=== PATIENT | male | born 1940 | race Caucasian/White ===

== ENCOUNTER 2017-06-11 12:12 | Inpatient (IN) | payer OTHER, MEDICARE ==
[~2017-06-11] VITALS: Ht 175.3 cm; Wt 65.8 kg
[~2017-06-11 12:12] MED LIST: (None)10 MG OR; FLOMAX0.4 MG OR; LORTAB 5 OR; LOTRISONE CREAM15 GM EX; SIMVASTATIN10 MG OR
[2017-06-11] MEDS ORDERED: PYRIDOXINE PO (17:04)
[2017-06-11] MEDS ORDERED: MULTI VITAMIN A1 TAB PO (17:05)
[2017-06-11] MEDS ORDERED: [UNRECOGNIZED DRUG - OTHER] EX (17:06)
[2017-06-18] VITALS (10 sets, daily range): BP systolic 93–154; BP diastolic 33–72
[2017-06-18 08:17] LABS: HEMATOCRIT 46.6 % (39.0-50.0); HEMOGLOBIN 15.6 g/dl (14.0-18.0); IMMATURE GRANULOCYTES 0.4 % (0.0-1.0); MEAN CELL VOLUME 95.7 fL CALC (80.0-100.0); MEAN CORPUSCULAR HGB CONC 33.5 g/L CALC (32.0-36.0); NEUT# 3.15 thou/uL (1.82-7.42); RED BLOOD COUNT 4.87 mill/uL (4.70-6.10)
[2017-06-18 08:43] LABS: ANION GAP 14 (6-22 (CALC)); BUN 15 mg/dL (8-23); BUN/CREATININE RATIO 25 (12-20 (CALC)); CALCIUM 9.4 mg/dL (8.4-10.2); CARBON DIOXIDE 24 mmol/l (22-30); CHLORIDE 108 mmol/l (95-108); CREATININE 0.6 mg/dL (0.7-1.3); GFR > 60 ML/MIN (>=60 (CALC)); GFR FOR AFR.AMER. > 60 ML/MIN (>=60 (CALC)); GLUCOSE 95 mg/dL (82-115); POTASSIUM 4.3 mmol/l (3.5-5.1); SODIUM 142 mmol/l (137-146)
--- NOTE | 2017-06-18 14:40 | NUR ---
PT TO ROOM VIA BED ACCOMPANIED BY STAFF; PT A/O X3; DRSG TO RT SHOULDER CDI; SLING IN PLACE; SCD TO RT LLE; IVF INFUSING IN #20 LFA WITHOUT DIFFICULTY, NO REDNESS OR EDEMA AT SITE; CALL GAN WITHIN REACH; WILL CONTINUE TO MONITOR
--- NOTE | 2017-06-18 15:00 | NUR ---
PT ARRIVED TO THE FLOOR FROM THE OR. PT IS ALERT AND AWAKER. PT STATES "I HAVE A BURNING PAIN IN MY RIGHT SHOULDER." DENIES ACTUAL PAIN. IVF INFUSING THROUGH PATENT IV SITE. PT ORIENTATED TO ROOM, RIGHTS, RESPONSIBILITIES AND CALL LIGHT. FAMILY AT BS, CASE MANAGEMENT IN ROOM TO DISCUSS DISCHARGE PLANNING. SAFETY REVIEWED, INSTRUCTED PT TO CALL FOR ASSISTANCE. PT VERBALIZES UNDERSTANDING.
--- NOTE | 2017-06-18 17:22 | NUR ---
PT RESTING WITH EYES CLOSED; NO S/SX OF DISTRESS NOTED; IVF INFUSING WITHOUT DIFFICULTY; CALL GAN WITHIN REACH; WILL CONTINUE TO MONITOR.
--- NOTE | 2017-06-18 19:00 | NUR ---
RECEIVED CHANGE OF SHIFT REPORT FROM KRYSTA ALMARAZ. PATIENT LAYING IN BED AND DENIES PAIN AT THIS TIME. WILL CONTINUE TO MONITOR.
--- NOTE | 2017-06-19 | NUR ---
PATIENT LAYING IN BED AND APPEARS NOT TO BE IN ANY APPARENT ACUTE DISTRESS AT THIS TIME.
--- NOTE | 2017-06-19 04:00 | NUR ---
NO APPARENT ACUTE CHANGES NOTED IN PATIENT'S CONDITION.
[2017-06-19 04:45] VITALS: BP 108/64
[2017-06-19 06:43] LABS: HEMATOCRIT 43.1 % (39.0-50.0); HEMOGLOBIN 14.5 g/dl (14.0-18.0)
--- NOTE | 2017-06-19 07:00 | NUR ---
RECEIVED BEDSIDE REPORT FROM MANOLO CHAPARRO. SITTING ON BEDSIDE COMMODE. RESPS EVEN AND UNLABORED ON ROOM AIR. DRESSING TO RIGHT SHOULDER CDI. SLING IN PLACE TO RIGHT ARM. C/O 10/30 RIGHT SHOULDER PAIN, WILL MEDICATE PER NOV. PLAN OF CARE DISCUSSED. SAFETY PRECAUTIONS REINFORCED. BED IN LOWEST POSITION WITH WHEELS LOCKED. CALL LIGHT WITHIN REACH. ENCOURAGED PT TO CALL FOR ANY NEEDS.
[2017-06-19 07:41] VITALS: BP 123/72
--- NOTE | 2017-06-19 07:50 | NUR ---
MEDICATED WITH 2 PERCOCET PO FOR C/O 10/30 RIGHT SHOULDER PAIN. WILL CONTINUE TO MONITOR.
--- NOTE | 2017-06-19 08:40 | NUR ---
C/O FREQUENT URINATION WITH SCANT AMT URINE OUTPUT. BEDSIDE BLADDER SCAN WITH >999ML. STRAIGHT CATH BY Junior SMART LPN USING STERILE TECHNIQUE WITH 775 OUTPUT OF CLEAR YELLOW URINE. ENCOURAGED PT TO CALL WITH NEXT VOID.
--- NOTE | 2017-06-19 14:50 | NUR ---
PM: N/C VISIT. PATIENT'S SON IN ROOM AND THERAPIST INSTRUCTED HIM HOW TO GUARD THE PATIENT ON THE STEPS SO THE PATIENT DID NOT HAVE TO USE THE RIGHT ARM TO B ALANCE. DISCUSSED WITH PATIENT HOW HE DONS AND DOFFS THE PROSTHESIS. HE IS ABLE TO DO IT ONE HANDED. PATIENT STATES HE IS GOING HOME THIS P.M. NURSING AND HIS SON PRESENT IN ROOM.
--- NOTE | 2017-06-19 15:17 | NUR ---
IN HIGH FOWLERS, RESPS EVEN AND UNLABORED ON ROOM IAR. FAMILY AT BEDSIDE. MEDICATED WITH PERCOCET PO FOR C/O 2/10 RIGHT SHOULDER PAIN. CALL LIGHT WITHIN REACH.
[2017-06-19] MEDS ORDERED: OXYCODO-APAP1 TA2 PO (15:21)
--- NOTE | 2017-06-19 16:00 | NUR ---
Discharge instructions given. Patient verbalizes understanding of same. Discharged in stable condition via Wheelchair to Home with family. All belongings sent with pt.
== END 2017-06-19 15:55 | disposition home or self-care (01) | DRG 483 ==
LOC: MS2 06-18 07:29
PROVIDERS: ADMIT Orthopaedic Surgery; ATTEND Internal Medicine
PROC: 0RRJ00Z Replacement of Right Shoulder Joint with Reverse Ball and Socket Synthetic Substitute, Open Approach (ICD-10-PCS; principal; 2017-06-18)
PROC: 0LS30ZZ Reposition Right Upper Arm Tendon, Open Approach (ICD-10-PCS; 2017-06-18)
DX: M19.011 Primary osteoarthritis, right shoulder (principal); Z93.0 Tracheostomy status; Z89.612 Acquired absence of left leg above knee; M75.111 Incomplete rotator cuff tear or rupture of right shoulder, not specified as traumatic; I10 Essential (primary) hypertension; K21.9 Gastro-esophageal reflux disease without esophagitis; E78.5 Hyperlipidemia, unspecified; F17.290 Nicotine dependence, other tobacco product, uncomplicated; N40.1 Benign prostatic hyperplasia with lower urinary tract symptoms; R33.8 Other retention of urine
CPT/HCPCS: J1100; J2710

== ENCOUNTER 2017-06-19 23:07 | Emergency (ER) | payer OTHER, MEDICARE ==
[~2017-06-19] VITALS: Ht 175.3 cm; Wt 65.9 kg
[~2017-06-19 23:07] MED LIST changes: +MULTI VITAMIN A1 TAB PO; +OXYCODO-APAP1 TA2 PO; +PYRIDOXINE PO; +[UNRECOGNIZED DRUG - OTHER] EX
[2017-06-19 23:49] LABS: URINE BILIRUBIN - DIPSTICK NEGATIVE (NEGATIVE); URINE BLOOD DIPSTICK TRACE-INTACT (NEGATIVE); URINE CLARITY CLOUDY; URINE COLOR YELLOW; URINE GLUCOSE - DIPSTICK NEGATIVE (NEGATIVE); URINE KETONE NEGATIVE (NEGATIVE); URINE LEUK ESTERASE NEGATIVE (NEGATIVE); URINE NITRITE - DIPSTICK NEGATIVE (Negative); URINE PROTEIN - DIPSTICK NEGATIVE (NEG-TRACE); URINE UROBILINOGEN - DIPSTICK 0.2 E.U./dL (0.2)
[2017-06-20 01:00] VITALS: BP 142/82
== END 2017-06-20 01:00 | disposition home or self-care (01) | DRG 696 ==
LOC: ED 23:07
PROVIDERS: Emergency Medicine
PROC: 0T9B70Z Drainage of Bladder with Drainage Device, Via Natural or Artificial Opening (ICD-10-PCS; principal; 2017-06-19)
DX: R33.9 Retention of urine, unspecified (principal); Z89.612 Acquired absence of left leg above knee; F17.210 Nicotine dependence, cigarettes, uncomplicated; Z98.890 Other specified postprocedural states

== ENCOUNTER 2017-07-29 06:03 | Inpatient (IN) | payer MEDICARE, OTHER ==
[~2017-07-29] VITALS: Ht 175.3 cm; Wt 73.6 kg
[2017-07-29] VITALS (9 sets, daily range): BP systolic 91–127; BP diastolic 52–90
[~2017-07-29 06:03] MED LIST changes: +FINASTERIDE5 MG PO; +VITAMIN B6200 MG PO
[2017-07-30 03:39] VITALS: BP 129/81
[2017-07-30 05:41] LABS: HEMATOCRIT 43.5 % (39.0-50.0); HEMOGLOBIN 14.2 g/dl (14.0-18.0); IMMATURE GRANULOCYTES 0.3 % (0.0-1.0); MEAN CELL VOLUME 96.7 fL CALC (80.0-100.0); MEAN CORPUSCULAR HGB 31.6 pG CALC (26.0-32.0); MEAN CORPUSCULAR HGB CONC 32.6 g/L CALC (32.0-36.0); NEUT# 5.53 thou/uL (1.82-7.42); RED BLOOD COUNT 4.5 mill/uL (4.70-6.10); RED CELL DISTRI WIDTH 13.3 % (11.5-15.5)
[2017-07-30 06:02] LABS: ANION GAP 12 (6-22 (CALC)); BUN 12 mg/dL (8-23); BUN/CREATININE RATIO 18 (12-20 (CALC)); CALCIUM 9.4 mg/dL (8.4-10.2); CARBON DIOXIDE 25 mmol/l (22-30); CHLORIDE 109 mmol/l (95-108); CREATININE 0.6 mg/dL (0.7-1.3); GFR > 60 ML/MIN (>=60 (CALC)); GFR FOR AFR.AMER. > 60 ML/MIN (>=60 (CALC)); GLUCOSE 76 mg/dL (82-115); MAGNESIUM 1.9 mg/dL (1.6-2.3); POTASSIUM 4.5 mmol/l (3.5-5.1); SODIUM 141 mmol/l (137-146)
[2017-07-30 11:00] VITALS: BP 106/67
== END 2017-07-30 13:31 | disposition home health service (06) | DRG 714 ==
LOC: ORM 06:03 → MS2 08:20 → ORM 11:30 → MS2 17:40
PROVIDERS: Nurse Practitioner Family; ADMIT Internal Medicine; ATTEND Internal Medicine
PROC: 0VB08ZZ Excision of Prostate, Via Natural or Artificial Opening Endoscopic (ICD-10-PCS; principal; 2017-07-29)
DX: N40.1 Benign prostatic hyperplasia with lower urinary tract symptoms (principal); Z93.0 Tracheostomy status; Z89.612 Acquired absence of left leg above knee; R33.8 Other retention of urine; R39.12 Poor urinary stream; N47.1 Phimosis; R35.0 Frequency of micturition; R39.14 Feeling of incomplete bladder emptying; R39.15 Urgency of urination; N39.43 Post-void dribbling; I10 Essential (primary) hypertension; E78.5 Hyperlipidemia, unspecified; M15.9 Polyosteoarthritis, unspecified; N32.89 Other specified disorders of bladder; Z01.818 Encounter for other preprocedural examination; E78.00 Pure hypercholesterolemia, unspecified; Z96.611 Presence of right artificial shoulder joint; Z96.652 Presence of left artificial knee joint; Z95.818 Presence of other cardiac implants and grafts; F17.290 Nicotine dependence, other tobacco product, uncomplicated
CPT/HCPCS: J2710